=== PATIENT | male | born 1975 | race African-American/Black ===

== ENCOUNTER 2020-01-15 07:16 | Emergency (ER) | payer OTHER ==
[~2020-01-15] VITALS: Ht 170.2 cm; Wt 77.0 kg
[~2020-01-15 07:16] MED LIST: ELDE1CAP PO; MULT-735 PO; OMEG1CAP6 PO
[2020-01-15] MEDS ORDERED: fentaNYL PF VIAL 100 MCG/2 ML VIAL IV ONE (08:15)
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
[2020-01-15 08:43] LABS: BASO # 0.1 x10^3/uL (0.0-0.2); BASO % 1 % (0-3); EOS # 0.5 x10^3/uL (0.0-0.7); EOS % 6 % (0-3); HEMATOCRIT 32.5 % (39.0-53.0); HEMOGLOBIN 10.7 g/dL (13.0-17.5); LYMPH # 1.6 x10^3/uL (1.0-4.8); LYMPH % 18 % (24-48); MEAN CORPUSCULAR HEMOGLOBIN 30 pg (25-35); MEAN CORPUSCULAR HGB CONC 33 g/dL (31-37); MEAN CORPUSCULAR VOLUME 90 fL (79-100); MONO # 0.5 x10^3/uL (0.0-1.1); MONO % 6 % (0-9); NEUT # 5.9 x10^3/uL (1.8-7.7); NEUT % 68 % (31-73); PLATELET COUNT 184 x10^3/uL (140-400); RED BLOOD COUNT 3.59 x10^6/uL (4.30-5.70); WHITE BLOOD COUNT 8.6 x10^3/uL (4.0-11.0)
[2020-01-15 08:47] LABS: CALCIUM 9.4 mg/dL (8.5-10.1); CREATININE 10.6 mg/dL (0.7-1.3); GFR 6.4
[2020-01-15 08:53] LABS: ALBUMIN 3.8 g/dL (3.4-5.0); ALBUMIN/GLOBULIN RATIO 1.1 (1.0-1.7); TOTAL BILIRUBIN 0.4 mg/dL (0.2-1.0); TOTAL PROTEIN 7.2 g/dL (6.4-8.2)
--- NOTE | 2020-01-15 09:27 | RAD ---
CT Abdomen and Pelvis without contrast History: Right flank pain for about 2 1/2 weeks Technique: Noncontrast CT imaging was performed of the abdomen and pelvis. Multiplanar images are reviewed. Exposure: One or more of the following individualized dose reduction techniques were utilized for this examination: 1. Automated exposure control 2. Adjustment of the mA and/or kV according to patient size 3. Use of iterative reconstruction technique. Comparison: None Findings: There are a couple of noncalcified nodules of the right lung base, largest image 6 series 2 about 0.5 cm. Visualized heart is enlarged. Tips from dialysis catheter terminate in the region of the right atrium. There is a small quantity of pericardial fluid. Gallbladder is present without obvious intraluminal abnormality by CT. Accurate evaluation of the abdominal visceral organs is limited without intravenous contrast, no obvious focal abnormality of the liver, spleen, or pancreas. Left kidney is absent, focus of nonspecific density in the left renal fossa some associated calcifications in greatest dimension about 2.3 cm AP by 1.8 cm transverse by about 2 cm cc. There is no discrete adrenal nodularity. There is some hazy density of the right perinephric fat, no right hydronephrosis or renal calculus. No convincing right ureteral calculus is identified. There is circumferential prominence of urinary bladder gold. There is some fat in the inguinal canals bilaterally no internal bowel. There is hyperdensity in the appendiceal lumen. Appendix caliber is borderline about 0.6 cm, not associated with significant adjacent inflammatory-type change. There is retained stool greater of the right colon. There is bowel anastomotic site in the left upper quadrant of the abdomen. There are multiple nonspecific mesenteric nodes, largest on the order of about 1 cm short axis dimension. The is also nonspecific hazy density of the mesenteric fat greatest centrally and in the left in the abdomen. There is small fat-containing ventral hernia in the abdomen as seen image 98 series 2 with neck of hernia about 0.8 cm, hernia sac about 1.4 cm transverse, no internal bowel. There is advanced degenerative disc disease at L5-S1, vacuum disc disease as well as sclerotic endplate change at this level. There is minimal grade 1 anterior spondylolisthesis at L5-S1, bilateral L5 spondylolysis. There is also disc osteophyte complex and bulge at L5-S1 which contributes to severe bilateral L5-S1 neural foramina compromise in combination with spondylolisthesis, impingement of the exiting L5 nerve roots bilaterally. There are some inguinal nodes bilaterally, largest about 1.3 cm short axis dimensions bilaterally. Impression: 1. There is mild hazy density of the right perinephric fat, nonspecific findings of certain chronicity. Pyelonephritis would be in the differential considerations. There is no hydronephrosis or urolithiasis. There is circumferential prominence of urinary bladder gold, cystitis not excluded. 2. There is no significant inflammatory type change about the bowel. There is hyperdensity in the appendiceal lumen which could be due to hyperdense stool, difficult to exclude underlying appendicolith, no significant periappendiceal inflammatory type change. 3. There is hazy density of the mesenteric fat also with multiple interspersed nonspecific nodes, which could be sequela of mesenteritis. However there are also somewhat enlarged inguinal nodes bilaterally for which clinical follow-up advised. 4. There has been left nephrectomy, focus of nonspecific density in the left renal fossa with some internal calcifications, cannot exclude underlying mass although could be related to sequela of fibrotic change or previous hematoma, no previous exams to evaluate for change. 5. There are a couple of noncalcified nodules at the right lung base. If there are increased risk factors for neoplasm, dedicated chest CT could be indicated. Regarding the visualized nodules, no additional follow-up is needed if low risk factors for neoplasm as per revised Fleischner guidelines, optional 12 month follow-up if increased risk factors. 6. There is grade 1 anterior spondylolisthesis L5-S1 due to bilateral L5 spondylolysis. There is severe L5-S1 degenerative disc disease, also spondylosis at this level. There is severe bilateral L5-S1 neural foramina compromise with impingement of the exiting L5 nerve roots bilaterally. Electronically signed by: Ash Stoddard MD (01/15/2020 9:25 AM) [id number]
[2020-01-15 11:01] LABS: BILIRUBIN,URINE NEGATIVE (NEG); CLARITY,URINE CLEAR; COLOR,URINE YELLOW; NITRITE,URINE NEGATIVE (NEG); PROTEIN,URINE >=300 mg/dL (NEG-TRACE); UROBILINOGEN,URINE 0.2 mg/dL (0.2 mg/dL)
[2020-01-15 11:08] LABS: BARBITURATES NEG (NEG); BENZODIAZEPINES NEG (NEG); CANNABINOIDS NEG (NEG); COCAINE NEG (NEG); METHADONE NEG (NEG); OPIATES NEG (NEG); PHENCYCLIDINE NEG (NEG)
[2020-01-15 11:09] LABS: AMPHETAMINE/METHAMPHETAMINE NEG (NEG)
[2020-01-15 11:24] LABS: BACTERIA,URINE 0 /HPF (0-FEW); RBC,URINE 0 /HPF (0-2); WBC,URINE TNTC /HPF (0-4)
[2020-01-15 11:25] LABS: SQUAMOUS EPITHELIAL CELL,UR FEW /LPF
[2020-01-15 11:29] VITALS: BP 185/102
[2020-01-15] MEDS ORDERED: cefTRIAXone IV Push 1 GM VIAL. IVP ONE (11:30)
[2020-01-15] MEDS ORDERED: TRAM-48 PO (11:56)
[2020-01-15] MEDS ORDERED: CEPH-264 PO (11:56)
== END 2020-01-15 12:11 | disposition home or self-care (01) ==
LOC: ER 07:16
DX: N39.0 Urinary tract infection, site not specified (principal); I12.0 Hypertensive chronic kidney disease with stage 5 chronic kidney disease or end stage renal disease; N18.6 End stage renal disease; Z99.2 Dependence on renal dialysis; K59.00 Constipation, unspecified; J45.909 Unspecified asthma, uncomplicated; G43.909 Migraine, unspecified, not intractable, without status migrainosus; F17.200 Nicotine dependence, unspecified, uncomplicated; Z90.81 Acquired absence of spleen; Z90.5 Acquired absence of kidney
CPT/HCPCS: 36415; 74176; 80053; 80307; 81001; 83690; 85025; 87086; 96374; 96375; 99285; J0696; J3010